=== PATIENT | female | born 1995 | race Caucasian/White ===

== ENCOUNTER → 2021-06-30 | Outpatient (CLI) | payer BC, OTHER ==
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
== END ==
LOC: KCIC MRI 10:16
PROVIDERS: ATTEND Physician Assistant Medical
DX: S83.012A Lateral subluxation of left patella, initial encounter (principal); R60.0 Localized edema; M22.42 Chondromalacia patellae, left knee; X58.XXXA Exposure to other specified factors, initial encounter; Y93.89 Activity, other specified; Y92.89 Other specified places as the place of occurrence of the external cause; Y99.8 Other external cause status
CPT/HCPCS: 73721